=== PATIENT | female | born 1995 | race Caucasian/White ===

== ENCOUNTER 2020-09-22 21:29 | Day surgery (SDC) | payer BC ==
[2020-09-22] MEDS ORDERED: hydrALAZINE 20 MG/ML VIAL SLOW IVP PRN (22:27)
[2020-09-22 22:52] LABS: Bilirubin Neg (Negative); Blood, Urine Negative (Negative); Clarity Clear (Clear); Glucose, Urine (Dipstick) Normal (Negative); Ketone, Urine 150 mg/dL (Negative); Leukocyte Negative (Negative); Nitrite Negative (Negative); Protein, Urine (Dipstick) Negative (Neg-Trace); Specific Gravity, Urine 1.005 (1.002-1.036); Urobilinogen Normal mg/dL (Less than 2)
[2020-09-22] MEDS ORDERED: Calcium Carbonate 500 MG ChewTAB PO PRN (22:59)
[2020-09-22 23:04] LABS: RBC/HPF 0-3 HPF (0-3); Squamous Epithelial None Seen HPF (0-3); WBC/HPF None Seen HPF (0-3)
[2020-09-22 23:05] LABS: Bacteria/HPF None Seen HPF (None Seen)
[2020-09-22 23:25] LABS: FFN Internal QC Analyzer PASS (PASS); FFN Internal QC Cassette PASS (PASS); Fetal Fibronectin POSITIVE (Negative)
== END 2020-09-23 01:23 | disposition home or self-care (01) ==
LOC: CSHLD/OP 21:29
PROVIDERS: ATTEND Obstetrics & Gynecology
DX: O47.03 False labor before 37 completed weeks of gestation, third trimester (principal); O99.891 Other specified diseases and conditions complicating pregnancy; M54.5 Low back pain; R10.30 Lower abdominal pain, unspecified; O09.213 Supervision of pregnancy with history of pre-term labor, third trimester; Z3A.32 32 weeks gestation of pregnancy
CPT/HCPCS: 81001; 82731; 87480; 87510; 87660; 99285

== ENCOUNTER 2020-10-21 03:07 | Day surgery (SDC) | payer BC ==
[2020-10-21 03:25] VITALS: BMI 23.8
[2020-10-21] MEDS ORDERED: hydrALAZINE 20 MG/ML VIAL SLOW IVP PRN (05:21)
== END 2020-10-21 05:32 | disposition home or self-care (01) ==
LOC: CSHLD/OP 03:07
PROVIDERS: ATTEND Obstetrics & Gynecology
DX: O47.03 False labor before 37 completed weeks of gestation, third trimester (principal); Z3A.36 36 weeks gestation of pregnancy
CPT/HCPCS: 99283

== ENCOUNTER 2021-11-11 08:28 | Outpatient (CLI) | payer BC | END 2021-11-11 08:29 | disposition home or self-care (01) | LOC: CSHLAB 08:28 | PROVIDERS: ATTEND Student in an Organized Health Care Education/Training Program | DX: Z01.812 Encounter for preprocedural laboratory examination (principal); Z20.822 Contact with and (suspected) exposure to COVID-19; N83.201 Unspecified ovarian cyst, right side | CPT/HCPCS: 84703; 85027; 86850; 86900; 86901; U0003; U0005 ==

== ENCOUNTER 2021-11-16 06:00 | Day surgery (SDC) | payer BC ==
[2021-11-11 09:47] LABS: Hemoglobin 13.6 g/dL (12.0-15.5); Mean Corpuscular HGB CONC 33.6 g/dL (32.0-36.0); Mean Corpuscular Hemoglobin 28.9 pg (27.0-33.0); Mean Corpuscular Volume 86.2 fl (81.6-98.3); Mean Platelet Volume 10.1 fl (7.4-10.4); Platelet Count 235 10x3/uL (150-450); RBC Distribution Width 13.2 % (11.5-14.5); White Blood Cell (WBC) Count 5.3 10x3/uL (3.5-10.5)
[2021-11-11 09:54] LABS: BHCG - Serum Negative (NEGATIVE); Pregs Control Background? CLEAR/WHITE (CLR/WHITE); Pregs Control Bar Appear? YES (CONTROL BAR)
[2021-11-14 15:44] VITALS: BMI 19.3
[2021-11-16] MEDS ORDERED: CeleCOXIB 100 MG CAP ONE (06:21)
[2021-11-16] MEDS ORDERED: Lidocaine 1% MPF 2 ML VIAL ONE (06:21)
[2021-11-16] MEDS ORDERED: EPINEPHrine 1 MG/ML AMP ONE (06:40)
[2021-11-16] MEDS ORDERED: Bupivacaine PF 0.5% 30 ML VIAL ONE (06:40)
[2021-11-16] MEDS ORDERED: ceFAZolin 2 GM/Dextrose 50 ML IVPB ONE (06:51)
[2021-11-16] MEDS ORDERED: Fentanyl 100 MCG/2 ML VIAL ONE (07:00)
[2021-11-16] MEDS ORDERED: Ketorolac Tromethamine 30 MG/ML VIAL ONE (07:00)
[2021-11-16] MEDS ORDERED: Midazolam HCl 2 mg/2 ml Vial ONE (07:00)
[2021-11-16] MEDS ORDERED: Lidocaine 1% PF 5 ML VIAL ONE (07:00)
[2021-11-16] MEDS ORDERED: Ondansetron PF 4 MG/2 ML Vial ONE (07:00)
[2021-11-16] MEDS ORDERED: Rocuronium Bromide 10 MG/ML (10ML VIAL) ONE (07:00)
[2021-11-16] MEDS ORDERED: PROPOFOL 20 ML ONE (07:00)
[2021-11-16] MEDS ORDERED: Glycopyrrolate 0.2 MG/ML 5 ML SYRINGE ONE (07:00)
[2021-11-16] MEDS ORDERED: Meperidine HCl/PF 25 MG/ML VIAL ONE (09:26)
== END 2021-11-16 12:20 | disposition home or self-care (01) ==
LOC: CSHSDC 06:00
PROVIDERS: ATTEND Student in an Organized Health Care Education/Training Program
PROC: 8E0W8CZ Robotic Assisted Procedure of Trunk Region, Via Natural or Artificial Opening Endoscopic (ICD-10-PCS; principal; 2021-11-16)
PROC: 0UB04ZZ Excision of Right Ovary, Percutaneous Endoscopic Approach (ICD-10-PCS; principal; 2021-11-16)
DX: D27.0 Benign neoplasm of right ovary (principal); Z20.822 Contact with and (suspected) exposure to COVID-19
CPT/HCPCS: 84703; 85027; 86850; 86900; 86901; 88307; J0171; J0690; J1885; J2175; J2250; J2405; J2704; J3010; S0020; U0003; U0005